=== PATIENT | female | born 1950 | race Caucasian/White ===

== ENCOUNTER → 2016-03-29 | Day surgery (SDC) | payer OTHER ==
[2016-03-16 08:41] VITALS: BMI 37.0
[~2016-03-29] VITALS: Ht 160 cm; Wt 96.4 kg
[~2016-03-29] MED LIST: AMLO-110 PO; ASPI-435 PO; ATEN50TA8 PO; BENA20TA14 PO; CALC-20 PO; CHOL1CAP57 PO; DIAZ10TA3 PO; FLAXOIL4 PO; LEVO25TA5 PO; LIDOCAINE HCL 2% 2 ML VIAL (20MG/ML) ONE; MIDAZOLAM HCL 1 MG/ML 2ML VIAL ONE; OMEG-13 PO; ONDANSETRON INJ 2 MG/ML 2 ML VIAL ONE; PANT1TAB48 PO; PROPOFOL IV EMULSION 10 MG/ML 20 ML VIAL IV ONE; ROSU20TA PO; SODIUM CHLORIDE 0.9% 500ML 500 ML IV ONE
[2016-03-29 09:51] VITALS: Ht 160 cm; Wt 96.4 kg
--- NOTE | 2016-03-29 10:50 | Endo History and Physical ---
History & Physical Date of Service: Mar 29, 2016. Chief Complaint: SCREENING Referring Physician: DR. BANKS History of Present Illness 66 yo CF who presents for screening colonoscopy. Past Surgical History Hx Cardiac Surgery: No Hx Internal Defibrillator: No Hx Pacemaker: No Hx Abdominal Surgery: No Hx of Implantable Prosthesis: No Hx Post-Op Nausea and Vomiting: No Hx Cancer Surgery: No Hx Thoracic Surgery: No Hx Orthopedic: No Hx Urinary Tract Surgery: No Family History Colon CA Social History Smoking Status: Former Smoker Hx Substance Use: No Hx Alcohol Use: Yes (VERY RARELY) Allergies Coded Allergies: Influenza Vaccine Live (Verified Allergy, Unknown, ARM SWELLING, 03/29/16) Current Medications Reported Home Medications Medications Dose Route/Sig Max Daily Dose Days Date Category Dose Instructions Aspirin 81 (Aspirin) 81 Mg Tab PO QD 03/29/16 Reported Crestor (Rosuvastatin Calcium) 20 Mg Tab 20 Mg PO HS 03/16/16 Reported Flax Seed Oil (Flaxseed (Linseed)) 1 Oil Oil 1 Dose PO DAILY AFTERNOON 10/19/14 Reported Vitamin D3 (Cholecalciferol) 1,000 Unit Cap 1 Tab PO DAILY AFTERNOON 10/19/14 Reported Fish Oil ([place]-3 Fatty Acids) 1 Cap Cap 1 Cap PO QAM 10/19/14 Reported Protonix (Pantoprazole) 40 Mg Tab 40 Mg PO QAM 10/19/14 Reported Calcium 600 + D (Calcium Carbonate-Vitamin D) 1 Tab Tab 1 Tab PO QAM 10/19/14 Reported Valium (Diazepam) 10 Mg Tab 10 Mg PO Q8H PRN 10/19/[address] WITH MEDICATION Levothyroxine Sodium 25 Mcg Tab 1 Tab PO QAM 90 10/19/14 Reported Tenormin (Atenolol) 50 Mg Tab 50 Mg PO QAM 10/19/14 Reported Lotensin (Benazepril HCl) 20 Mg Tab 20 Mg PO BID 10/19/14 Reported Norvasc (Amlodipine Besylate) 5 Mg Tab 5 Mg PO BID 10/19/14 Reported Vital Signs Weight (Kilograms): 96.36 Height (Feet): 5 Height (Inches): 3 Date Time Temp Pulse Resp B/P Pulse Ox O2 Delivery O2 Flow Rate FiO2 03/29/16 09:55 36.6 74 20 136/78 95 Room Air Physical Exam General Appearance: WD/WN, no apparent distress Respiratory/Chest: Auscultation: breath sounds normal Cardiovascular: Heart Auscultation: RRR Abdomen: Bowel Sounds: normal Inspection & Palpation: soft, non-distended, no tenderness, guarding & rebound Assessment and Plan Assessment: 66 yo CF who presents for screening colonoscopy. Plan: Proceed with colonoscopy.
--- NOTE | 2016-03-29 11:17 | Discharge Instructions ---
Endoscopy Patient Instructions Date / Procedure(s) Performed Mar 29, 2016. Colonoscopy Allergy Information Coded Allergies: Influenza Vaccine Live (Verified Allergy, Unknown, ARM SWELLING, 03/29/16) Discharge Date / Findings Mar 29, 2016. Sigmoid colon polyp Medication Instructions OK to resume all medications today as prescribed. Reported Home Medications Medications Dose Route/Sig Max Daily Dose Days Date Category Dose Instructions Aspirin 81 (Aspirin) 81 Mg Tab PO QD 03/29/16 Reported Crestor (Rosuvastatin Calcium) 20 Mg Tab 20 Mg PO HS 03/16/16 Reported Flax Seed Oil (Flaxseed (Linseed)) 1 Oil Oil 1 Dose PO DAILY AFTERNOON 10/19/14 Reported Vitamin D3 (Cholecalciferol) 1,000 Unit Cap 1 Tab PO DAILY AFTERNOON 10/19/14 Reported Fish Oil ([place]-3 Fatty Acids) 1 Cap Cap 1 Cap PO QAM 10/19/14 Reported Protonix (Pantoprazole) 40 Mg Tab 40 Mg PO QAM 10/19/14 Reported Calcium 600 + D (Calcium Carbonate-Vitamin D) 1 Tab Tab 1 Tab PO QAM 10/19/14 Reported Valium (Diazepam) 10 Mg Tab 10 Mg PO Q8H PRN 10/19/[address] WITH MEDICATION Levothyroxine Sodium 25 Mcg Tab 1 Tab PO QAM 90 10/19/14 Reported Tenormin (Atenolol) 50 Mg Tab 50 Mg PO QAM 10/19/14 Reported Lotensin (Benazepril HCl) 20 Mg Tab 20 Mg PO BID 10/19/14 Reported Norvasc (Amlodipine Besylate) 5 Mg Tab 5 Mg PO BID 10/19/14 Reported Provider Instructions Activity Restrictions - No exercising or heavy lifting for 24 hours. - Do not drink alcohol the day of the procedure. - Do not drive a car or operate machinery until the day after the procedure. - Do not make any important decisions or sign important papers in 24 hours after the procedure. Following Day: - Return to full activity which may include returning to work/school. Diet Start your diet with liquids and light foods (jello, soup, juice, toast). Then eat your usual diet if not nauseated. Treatment For Common After Affects For mild abdominal pain, bloating, or excessive gas: - Rest - Eat lightly - Lie on right side Follow-Up Information Follow-up with DR. BANKS as scheduled Anesthesia Information What You Should Know You have had a procedure that required some medicine to reduce anxiety and discomfort. This treatment is called moderate sedation. After receiving the treatment, you may be sleepy, but you will be able to breathe on your own. The effects of the treatment may last for several hours. Follow these instructions along with Activity/Diet recommendations noted above: * Do NOT do anything where dizziness or clumsiness would be dangerous. * Rest quietly at home today, then you can be up and about tomorrow. * Have a responsible person stay with you the rest of today. * You may have had an I.V. today. If so, you may take the dressing off later today. Recommendations Call your doctor if: * Trouble breathing * Continuous vomiting for more than 24 hours * Temperature above 101 degrees * Severe abdominal pain or bloating * Pain not relieved by pain medicine ordered * There is increased drainage or redness from any incision * A large amount of rectal bleeding greater than 2-3 tablespoons. (If you had a polyp/s removed or have hemorrhoids, a small amount of blood - from the rectum is to be expected.) * You have any unanswered questions or concerns. IN THE EVENT OF A SERIOUS EMERGENCY, GO TO THE NEAREST EMERGENCY ROOM Your discharge instructions were prepared by provider Jerry Mark. Patient Instructions Signature Page Stephanie James Patient (or Guardian) Signature/Date: I have read and understand the instructions given to me by my caregivers. Caregiver/RN/Doctor Signature/Date: The above-named patient and/or guardian has received patient instructions on this date. + Original Patient Signature Page (only) stays with chart. Please make copy for patient.
--- NOTE | 2016-03-29 11:22 | GI REPORT ---
Procedure Date: 03/29/2016 10:15 AM Procedure: Colonoscopy Indications: Screening for colorectal malignant neoplasm Medicines: Monitored Anesthesia Care Complications: No immediate complications. Estimated Blood Loss: Estimated blood loss: none. Procedure: Pre-Anesthesia Assessment: - Prior to the procedure, a History and Physical was performed, and patient medications and allergies were reviewed. The patient's tolerance of previous anesthesia was also reviewed. The risks and benefits of the procedure and the sedation options and risks were discussed with the patient. All questions were answered, and informed consent was obtained. Prior Anticoagulants: The patient has taken aspirin, last dose was 2 days prior to procedure. ASA Grade Assessment: III - A patient with severe systemic disease. After reviewing the risks and benefits, the patient was deemed in satisfactory condition to undergo the procedure. After I obtained informed consent, the scope was passed under direct vision. Throughout the procedure, the patient's blood pressure, pulse, and oxygen saturations were monitored continuously. The scope was introduced through the anus and advanced to the terminal ileum. The colonoscopy was performed without difficulty. The patient tolerated the procedure well. The quality of the bowel preparation was good. The terminal ileum, ileocecal valve, appendiceal orifice, and rectum were photographed. Findings: A 4 mm polyp was found in the sigmoid colon. The polyp was sessile. The polyp was removed with a cold snare. Resection and retrieval were complete. Impression: - One 4 mm polyp in the sigmoid colon, removed with a cold snare. Resected and retrieved. Recommendation: - Resume previous diet. - Continue present medications. - Repeat colonoscopy for surveillance based on pathology results. - Return to primary care physician as previously scheduled. Jerry Mark, DO 03/29/2016 11:20:19 AM This report has been signed electronically. Note Initiated On: 03/29/2016 10:15 AM
[2016-03-29 11:45] VITALS: BP 137/67; PULSE 62; O2SAT 94
--- NOTE | 2016-03-29 11:50 | Anesthesiology Progress Note ---
Anesthesia Post Op Note Date & Time Mar 29, 2016 at 11:49 Vital Signs Vital Signs Past 12 Hours Date Time Temp Pulse Resp B/P Pulse Ox O2 Delivery O2 Flow Rate FiO2 03/29/16 11:30 59 18 172/63 94 Room Air 03/29/16 11:15 60 16 106/57 94 Room Air 03/29/16 09:55 36.6 74 20 136/78 95 Room Air Notes Mental Status: alert / awake / arousable, participated in evaluation Pt Amnestic to Procedure: Yes Nausea / Vomiting: adequately controlled Pain: adequately controlled Airway Patency, RR, SpO2: stable & adequate BP & HR: stable & adequate Hydration State: stable & adequate Anesthetic Complications: no major complications apparent
== END | disposition home or self-care (01) ==
LOC: C.GI 09:32
PROVIDERS: ATTEND Internal Medicine
DX: Z12.11 Encounter for screening for malignant neoplasm of colon (principal); D12.5 Benign neoplasm of sigmoid colon; K21.9 Gastro-esophageal reflux disease without esophagitis; F41.9 Anxiety disorder, unspecified; Z68.37 Body mass index [BMI] 37.0-37.9, adult; Z88.7 Allergy status to serum and vaccine; Z98.890 Other specified postprocedural states; Z87.891 Personal history of nicotine dependence; Z80.0 Family history of malignant neoplasm of digestive organs

== ENCOUNTER → 2016-10-18 | Outpatient (CLI) | payer OTHER ==
[~2016-10-18] MED LIST changes: -LIDOCAINE HCL 2% 2 ML VIAL (20MG/ML) ONE; -MIDAZOLAM HCL 1 MG/ML 2ML VIAL ONE; -ONDANSETRON INJ 2 MG/ML 2 ML VIAL ONE; -PROPOFOL IV EMULSION 10 MG/ML 20 ML VIAL IV ONE; -SODIUM CHLORIDE 0.9% 500ML 500 ML IV ONE
--- NOTE | 2016-10-18 14:03 | MAMMOGRAPHY REPORT ---
BILATERAL DIGITAL SCREENING MAMMOGRAM WITH CAD: 10/18/2016 CLINICAL HISTORY: Routine screening examination. TECHNIQUE: Bilateral CC and MLO views were obtained. Current study was also evaluated with a Compute r Aided Detection (CAD) system. COMPARISON: Comparison is made to exams dated: 10/15/2015 mammogram - [facility] an d 01/24/2013 mammogram - [facility]. BREAST COMPOSITION: There are scattered areas of fibroglandular density in both breasts. FINDINGS: There is a 6 mm nodular asymmetry in the medial anterior left breast, best seen on the CC view. Further evaluation with spot compression tomosynthesis views and possible ultrasound are recom mended. There are stable asymmetries in the middle one third of the right breast. Scattered stable benign-ap pearing calcifications bilaterally, and stable postsurgical changes in the right breast. No other devries spicious mass, architectural distortion or cluster of microcalcifications is seen. IMPRESSION: ACR BI-RADS CATEGORY 0: INCOMPLETE EVALUATION: NEED ADDITIONAL IMAGING EVALUATION The 6 mm nodular asymmetry in the medial left breast needs additional evaluation. The patient will be called to schedule an appointment. Approximately 10% of breast cancers are not detected with mammography. A negative mammographic report should not delay biopsy if a clinically suggestive mass is present. Evonne Geiger M.D. ay/:10/18/2016 13:46:58 Youth Accommodation Support Worker: Renetta EUCEDA)(Brittani), [facility] letter sent: Addl Imaging 0 BI-RADS Code: ACR BI-RADS Category 0: Incomplete Evaluation: Need Additional Imaging Evaluation
== END | disposition home or self-care (01) ==
LOC: C.MAMM 12:50
PROVIDERS: ATTEND Internal Medicine
DX: Z12.31 Encounter for screening mammogram for malignant neoplasm of breast (principal)

== ENCOUNTER → 2016-10-25 | Outpatient (CLI) | payer OTHER ==
--- NOTE | 2016-10-25 16:07 | MAMMOGRAPHY REPORT ---
UNILATERAL LEFT DIGITAL DIAGNOSTIC MAMMOGRAM TOMOSYNTHESIS AND TARGETED LEFT ULTRASOUND: 10/25/2016 CLINICAL HISTORY: 66-year-old woman called back from screening mammography for a 6 mm nodular asymmet ry in the medial anterior left breast, best seen on the CC view. Patient reports a history of prior left breast surgery. On visual inspection there is a superior periareolar incision in the left breas t. TECHNIQUE: Spot compression left CC and MLO 2-D and tomosynthesis images were obtained. COMPARISON: Comparison is made to exams dated: 10/18/2016 mammogram, 10/15/2015 mammogram - [facility], and 01/24/2013 mammogram - [facility]. BREAST COMPOSITION: There are scattered areas of fibroglandular density in the left breast. FINDINGS: The recently described 6 mm nodular asymmetry in the medial anterior left breast is less co nspicuous on the spot compression CC view and there is no definite persistent mass on the correspondi ng tomosynthesis images in that location. No focal area of architectural distortion or suspicious ca lcifications are seen. No corresponding abnormality is identified on the spot compression MLO view. Targeted ultrasound was performed in the medial left breast including the 12:00 and 6:00 axes. There is a parallel hypoechoic solid versus cystic mass in the 9:00 periareolar left breast that could sim ply represent scar tissue. It measures 4.6 x 4.9 x 2.7 mm. No other discrete solid or cystic mass i s seen. IMPRESSION: ACR-BI-RADS CATEGORY 3: PROBABLY BENIGN, TARGETED ULTRASOUND ACR-BI-RADS CATEGORY 3: PRO BABLY BENIGN There is partial effacement of the 6 mm nodular asymmetry in the medial anterior left breast with add itional mammographic views. A possible sonographic correlate which could represent a benign complica filipe cyst or scar tissue in the 9:00 periareolar left breast on ultrasound. A short interval follow-u p left diagnostic mammogram including tomosynthesis images and repeat targeted ultrasound in the 9:00 left breast is recommended to ensure stability in 6 months. These results and recommendations were discussed with the patient at the time of the exam. Approximately 10% of breast cancers are not detected with mammography. A negative mammographic report should not delay biopsy if a clinically suggestive mass is present. Evonne Geiger M.D. ay/:10/25/2016 14:40:02 Automation Qtp Tester: Zee De Leon RT(R)(M), [facility] letter sent: Follow Up Recommended 3 BI-RADS Code: ACR-BI-RADS Category 3: Probably Benign Ultrasound BI-RADS: ACR-BI-RADS Category 3: Pr obably Benign
== END | disposition home or self-care (01) ==
LOC: C.MAMM 12:45
PROVIDERS: ATTEND Internal Medicine
DX: N64.9 Disorder of breast, unspecified (principal)

== ENCOUNTER → 2017-03-22 | Outpatient (CLI) | payer OTHER ==
[~2017-03-22] MED LIST changes: -AMLO-110 PO; +AMLO5TAB3 PO; +PANT1TAB3 PO; -PANT1TAB48 PO
[2017-03-22 17:20] LABS: BASO % 0.4 %; BASO ABS # 0.02 K/uL (0-0.2); EOS % 3.9 %; EOS ABS # 0.22 K/uL (0-0.5); HEMATOCRIT 43.1 % (37-47); HEMOGLOBIN 14.4 g/dL (12.0-16.0); IG# 0.02 K/uL (0.00-0.02); LYMPH % 24.4 %; LYMPH ABS # 1.36 K/uL (1.2-3.4); MEAN CELL VOLUME 93.9 fL (80-100); MEAN CORPUSCULAR HEMOGLOBIN 31.4 pg (25-34); MEAN CORPUSCULAR HGB CONC 33.4 g/dl (32-36); MEAN PLATELET VOLUME 9.8 fL (7.4-10.4); MONO % 6.6 %; MONO ABS # 0.37 K/uL (0.11-0.59); NEUT % 64.3 %; NEUT ABS # 3.58 K/uL (1.4-6.5); PLATELET COUNT 321 K/uL (130-400); RED CELL DISTRIBUTION WIDTH SD 44.8 fL (36.4-46.3); WHITE BLOOD COUNT 5.57 K/uL (4.8-10.8)
[2017-03-22 19:17] LABS: ALT/SGPT 41 U/L (12-78); AST/SGOT 31 U/L (15-37); BLOOD UREA NITROGEN 16 mg/dl (7-18); CARBON DIOXIDE 24 mmol/L (21-32); CHOLESTEROL 216 mg/dl (0-200); CREATININE 0.84 mg/dl (0.60-1.20); GLUCOSE 103 mg/dl (70-99); SODIUM 136 mmol/L (136-145)
[2017-03-22 19:29] LABS: ALKALINE PHOSPHATASE 90 U/L (45-117); LDL CHOLESTEROL CALCULATED 121 mg/dl; TOTAL PROTEIN 8.3 gm/dl (6.4-8.2)
== END | disposition home or self-care (01) ==
LOC: C.LABBFT 11:31
PROVIDERS: ATTEND Internal Medicine
DX: I10 Essential (primary) hypertension (principal); E78.5 Hyperlipidemia, unspecified; E55.9 Vitamin D deficiency, unspecified; E03.9 Hypothyroidism, unspecified

== ENCOUNTER → 2017-04-26 | Outpatient (CLI) | payer OTHER ==
[~2017-04-26] MED LIST changes: +AMLO-110 PO; -AMLO5TAB3 PO
--- NOTE | 2017-04-27 14:02 | MAMMOGRAPHY REPORT ---
UNILATERAL LEFT DIGITAL DIAGNOSTIC MAMMOGRAM TOMOSYNTHESIS WITH CAD AND TARGETED LEFT ULTRASOUND: 04/26 CLINICAL HISTORY: 67-year-old woman presents for follow-up in the left breast for a small, probably b enign 6 mm nodular asymmetry in the medial anterior breast with possible sonographic correlate in the 9:00 periareolar axis on ultrasound. TECHNIQUE: Left breast tomosynthesis in addition to standard 2D mammography was performed. Current st udy was also evaluated with a Computer Aided Detection (CAD) system. COMPARISON: Comparison is made to exams dated: 10/25/2016 ultrasound, 10/25/2016 mammogram, 10/18/2016 ma mmogram, 10/15/2015 mammogram - [facility], and 01/24/2013 mammogram - [facility]. BREAST COMPOSITION: There are scattered areas of fibroglandular density in the left breast. FINDINGS: There is persistence of a 5-6 mm nodular asymmetry in the medial anterior left breast on t he CC view. No associated architectural distortion or microcalcification. No other new suspicious m asses, calcifications, areas of architectural distortion or asymmetries are identified in the visuali zed left breast. No focal skin thickening appreciated. Targeted ultrasound was performed in the medial left breast with particular attention to the 9:00 per iareolar region. In the 9:00 periareolar breast a small parallel circumscribed hypoechoic solid vers us cystic mass is again identified measuring 4.5 x 3.1 x 5.2 mm. This has not significantly changed in size comparing to the prior ultrasound and may possibly correlate with the nodular mammographic as ymmetry. This could represent a complicated cyst or benign mass such as a fibroadenoma. However it was not definitely seen on more remote prior mammograms and therefore another short interval follow-u p left diagnostic mammogram and repeat targeted ultrasound is recommended to ensure longer stability. Annual right mammography will also be due at that time. IMPRESSION: ACR-BI-RADS CATEGORY 3: PROBABLY BENIGN, TARGETED ULTRASOUND ACR-BI-RADS CATEGORY 3: PRO BABLY BENIGN A 5-6 mm nodular asymmetry in the medial anterior left breast is stable comparing to the prior diagno stic mammograms performed 10/18/2016. A possible sonographic correlate in the 9:00 periareolar left breast on ultrasound is also unchanged. Although these findings are probably benign, another short i nterval follow-up left diagnostic tomosynthesis mammogram and repeat targeted ultrasound is recommend ed to ensure longer stability. Annual right mammography will also be due at that time. These results and recommendations were discussed with the patient at the time of the exam. Approximately 10% of breast cancers are not detected with mammography. A negative mammographic report should not delay biopsy if a clinically suggestive mass is present. Evonne Geiger M.D. ay/:04/26/2017 15:11:25 Video Tape Transferrer: Zee ABRAHAM(Dontrell)(M), [facility] letter sent: Follow Up Recommended 3 BI-RADS Code: ACR-BI-RADS Category 3: Probably Benign Ultrasound BI-RADS: ACR-BI-RADS Category 3: Pr obably Benign
== END | disposition home or self-care (01) ==
LOC: C.MAMM 13:56
PROVIDERS: ATTEND Internal Medicine
DX: N64.89 Other specified disorders of breast (principal)

== ENCOUNTER → 2017-11-07 | Outpatient (CLI) | payer OTHER ==
[~2017-11-07] MED LIST changes: -AMLO-110 PO; +AMLO5TAB3 PO
--- NOTE | 2017-11-08 06:59 | MAMMOGRAPHY REPORT ---
BILATERAL DIGITAL DIAGNOSTIC MAMMOGRAM TOMOSYNTHESIS WITH CAD AND TARGETED LEFT ULTRASOUND: 11/07/2017 CLINICAL HISTORY: 67-year-old woman presents for continued close follow-up in the left breast for a 5 6 mm nodular asymmetry in the medial, anterior left breast on the CC view. Also due for annual bilat eral mammography. TECHNIQUE: Bilateral CC and MLO 2D and tomosynthesis images were obtained. Current study was also ev aluated with a Computer Aided Detection (CAD) system. COMPARISON: Comparison is made to exams dated: 04/26/2017 mammogram, 10/25/2016 mammogram, 10/18/2016 [place] mogram, 10/15/2015 mammogram, 10/25/2016 ultrasound - [facility], and 01/24/2013 mammog [facility]. BREAST COMPOSITION: There are scattered areas of fibroglandular density in both breasts. FINDINGS: Again noted is a small ovoid nodular asymmetry versus circumscribed mass in the medial ante rior left breast best seen on CC tomosynthesis slice 32/79, not definitively seen in the MLO projecti on. No associated calcification or architectural distortion. Current measurements are 4.9 x 3.0 mm, and given slight differences in positioning this is likely stable comparing to prior mammograms dati ng back to at least 10/18/2016. No other new suspicious masses, calcifications, asymmetries or areas of architectural distortion are seen bilaterally. There is a stable nodular asymmetry in the right b reast along the posterior nipple line on the CC view that appears very similar to the prior 2016 and 2013 mammograms. A nodular asymmetry along the posterior nipple line on the right MLO view also appe ars very similar to the 2014 mammogram suggesting benignity. Targeted ultrasound was performed throughout the medial left breast. In the 9:00 periareolar region, there is a possible complicated cyst measuring 5.1 x 2.5 x 4.8 mm although this could simply represe nt normal fibroglandular tissue. A small focal prominence of the duct is again noted in the 9:00 per iareolar left breast although this could represent a cyst associated with the duct. This measures 4. 9 x 4.0 x 2.1 mm and is unchanged dating back to October 2016, therefore likely benign. Another 12 mo nth follow-up left diagnostic tomosynthesis mammogram and repeat targeted ultrasound is recommended t o ensure at least 2 years of stability to confirm benignity. Annual bilateral mammography will also be due at that time. IMPRESSION: ACR-BI-RADS CATEGORY 3: PROBABLY BENIGN, ULTRASOUND ACR-BI-RADS CATEGORY 3: PROBABLY ZAK GN 1. Stable mammographic appearance of the left breast including a 5 x 3 mm nodular asymmetry in the medial, anterior left breast in the CC projection, with possible focal duct ectasia versus cyst with associated duct correlates seen in the 9:00 periareolar left breast on ultrasound. Another 12 month follow-up left diagnostic tomosynthesis mammogram and a repeat targeted ultrasound is recommended to ensure at least 2 years of stability to confirm benignity. 2. Stable mammographic appearance of the right breast, without mammographic evidence of malignancy. Advise follow-up in 12 months. These results and recommendations were discussed with the patient at the time of the exam. Some breast cancers are not detected with mammography. A negative mammographic report should not zhao y biopsy if a clinically suggestive mass is present. Evonne Geiger M.D. ay/:11/07/2017 11:13:35 Lens Fabricating Machine Tender: Zee Plaza, [facility]; Evonne Geiger [facility] letter sent: Follow Up Recommended 3 OVERALL STUDY BIRADS: 3 Probably benign
== END | disposition home or self-care (01) ==
LOC: C.MAMM 09:57
PROVIDERS: ATTEND Internal Medicine
DX: N64.89 Other specified disorders of breast (principal)